=== PATIENT | male | born 1985 | race Caucasian/White ===

== ENCOUNTER → 2016-11-14 11:44 | Emergency (ER) | payer MEDICARE ==
[~2016-11-14 11:44] MED LIST: NS 0.9% 1000 ML* 1,000 ML IV ONE; ceFAZolin 1 GM in Dextrose (*) 1 GM/50 ML BAG IVPB ONE
--- NOTE | 2016-11-14 13:50 | RAD ---
INDICATION: RIGHT lower extremity cellulitis with worsening. Assess for DVT. COMPARISON: None. TECHNIQUE: Carlson scale, color Doppler, and spectral analysis of the deep veins of the RIGHT lower extremity. Vessel compression, phasicity, and augmentation assessed. REPORT: Obesity limits acoustic window. The RIGHT common femoral, great saphenous, profunda femoral, femoral, popliteal, peroneal, and posterior tibial veins are patent. Severe subcutaneous edema at the calf. No loculated fluid collection visualized. Patency of the contralateral common femoral vein documented. IMPRESSION: No evidence for RIGHT lower extremity deep venous thrombosis.
--- NOTE | 2016-11-14 16:16 | RAD ---
INDICATION: Cellulitis COMPARISON: None TECHNIQUE: AP, lateral, and oblique views were obtained. FINDINGS: There are no acute bony findings. There is mild disruption of the fat-muscle and face consistent with edematous change which can be seen with cellulitis. IMPRESSION: DEPENDENT EDEMA, OTHERWISE NEGATIVE.
[2016-11-14 16:52] LABS: Hematocrit 44 % (42-52); Hemoglobin 15.1 g/dl (14.0-18.0); Mean Corpuscular HGB Conc 34 g/dl (31-36); Mean Corpuscular Hemoglobin 31 pg (27-31); Mean Corpuscular Volume 91 fL (80-94); Mean Platelet Volume 8 um3 (7.4-10.4); Red Blood Count 4.85 10^6/ul (4.0-5.4); Red Cell Distribution Width 14 % (10.5-15); White Blood Count 10.2 10^3/ul (3.5-10.8)
[2016-11-14 17:10] LABS: Albumin 4.1 g/dL (3.2-5.2); BUN/Creatinine Ratio 9.4 (8-20); C Reactive Protein 13.84 mg/L (< 5.00); Calcium 9.4 mg/dL (8.6-10.3); EGFR African American 116.7 (>60); EGFR Non-African American 90.8 (>60); Total Bilirubin 0.9 mg/dL (0.2-1.0); Total Protein 8.1 g/dL (6.4-8.9)
--- NOTE | 2016-11-14 18:15 | ED ---
Daria, DoctorPatrizia scribed for Maryana Crum MD on 11/14/16 at 1523 . Lower Extremity - HPI Summary HPI Summary: 31 year old male arrived to [facility] c/o right leg swelling and erythema. He additionally reports pain (rated 8/10) in the front and backside of the right leg. Pt was hospitalized in [place] for cellulitis in the right leg 1 month ago, but noticed increased redness and swelling on the right side beginning three days ago. Pt denies any vomiting, fever, or high blood glucose levels. He was taking Clindamycin for his leg infection, but completed his dose within 1 week. He has PMHx of HTN, Chronic Back Pain, and a torn disc but no PMHx of DM. - History of Current Complaint Chief Complaint: EDExtremityLower Stated Complaint: RT LEG COMPLAINT Hx Obtained From: Patient Onset of Pain: Days Onset/Duration: Worse Since - increased redness for the past three days Severity Initially: Moderate Severity Currently: Moderate Pain Intensity: 8 Pain Scale Used: 0-10 Numeric Timing: Lasting Days Associated Signs And Symptoms: Positive: Swelling, Redness - Allergies/Home Medications Allergies/Adverse Reactions: Allergies Allergy/AdvReac Type Severity Reaction Status Date / Time No Known Allergies Allergy Verified 11/12/15 09:20 PMH/Surg Hx/FS Hx/Imm Hx Endocrine/Hematology History: Denies: Hx Diabetes Cardiovascular History: Reports: Hx Hypertension Respiratory History: Reports: Hx Sleep Apnea History: Reports: Hx Kidney Stones Musculoskeletal History: Reports: Hx Back Problems, Hx Scoliosis - Surgical History Surgery Procedure, Year, and Place: Right Knee Surgery 2004 in [place] Infectious Disease History: Denies: Traveled Outside the in Last 30 Days - Family History Known Family History: Positive: Diabetes - Social History Occupation: Employed Full-time Lives: With Family Alcohol Use: Rare Substance Use Type: Reports: None, Marijuana Smoking Status (MU): Former Smoker Type: Cigarettes Have You Smoked in the Last Year: No Review of Systems Negative: Fever Negative: Vomiting Positive: Edema - bilateral lower extremity edema Positive: Other - right lower extremity erythema All Other Systems Reviewed And Are Negative: Yes Physical Exam Triage Information Reviewed: Yes Vital Signs On Initial Exam: Initial Vitals Temp Pulse Resp BP Pulse Ox 98 F 90 18 154/96 100 11/14/16 11:52 11/14/16 11:52 11/14/16 11:52 11/14/16 11:52 11/14/16 11:52 Vital Signs Reviewed: Yes Appearance: Positive: Well-Appearing, No Pain Distress Skin: Positive: Warm, Dry, Other - bilateral lower extremity edema and lower right extremity erythema Eyes: Positive: EOMI, GRACE ENT: Positive: Pharynx normal, TMs normal Respiratory/Lung Sounds: Positive: Clear to Auscultation, Breath Sounds Present. Negative: Rales, Rhonchi, Wheezes Cardiovascular: Positive: RRR. Negative: Murmur, Rub Abdomen Description: Positive: Nontender, Soft. Negative: Distended, Guarding Bowel Sounds: Positive: Present Musculoskeletal: Positive: Strength/ROM Intact, Edema Left, Edema Right Neurological: Positive: Sensory/Motor Intact, Alert, Oriented to Person Place, Time, CN Intact II-III Psychiatric: Positive: Affect/Mood Appropriate Diagnostics - Vital Signs Vital Signs Temp Pulse Resp BP Pulse Ox 11/14/16 14:03 97.2 F 83 18 154/94 100 11/14/16 12:58 97.4 F 83 18 149/100 100 11/14/16 11:52 98 F 90 18 154/96 100 - Laboratory Lab Results: Lab Results 11/14/16 11/14/16 11/14/16 Range/Units 16:35 16:35 16:35 WBC 10.2 (3.5-10.8) 10^3/ul RBC 4.85 (4.0-5.4) 10^6/ul Hgb 15.1 (14.0-18.0) g/dl Hct 44 (42-52) % MCV 91 (80-94) fL MCH 31 (27-31) pg MCHC 34 (31-36) g/dl RDW 14 (10.5-15) % Plt Count 268 (150-450) 10^3/ul MPV 8 (7.4-10.4) um3 Neut % (Auto) 69.2 (38-83) % Lymph % (Auto) 20.6 L (25-47) % [place] % (Auto) 5.3 (1-9) % Eos % (Auto) 4.2 (0-6) % Baso % (Auto) 0.7 (0-2) % Absolute Neuts (auto) 7.0 (1.5-7.7) 10^3/ul Absolute Lymphs (auto) 2.1 (1.0-4.8) 10^3/ul Absolute Monos (auto) 0.5 (0-0.8) 10^3/ul Absolute Eos (auto) 0.4 (0-0.6) 10^3/ul Absolute Basos (auto) 0.1 (0-0.2) 10^3/ul Absolute Nucleated RBC 0.01 10^3/ul Nucleated RBC % 0.1 Sodium 136 (133-145) mmol/L Potassium 4.0 (3.5-5.0) mmol/L Chloride 101 (101-111) mmol/L Carbon Dioxide 30 (22-32) mmol/L Anion Gap 5 (2-11) mmol/L BUN 9 (6-24) mg/dL Creatinine 0.96 (0.67-1.17) mg/dL Est GFR ( Amer) 116.7 (>60) Est GFR (Non-Af Amer) 90.8 (>60) BUN/Creatinine Ratio 9.4 (8-20) Glucose 82 (70-100) mg/dL Lactic Acid 0.7 (0.5-2.0) mmol/L Calcium 9.4 (8.6-10.3) mg/dL Total Bilirubin 0.90 (0.2-1.0) mg/dL AST 16 (13-39) U/L ALT 18 (7-52) U/L Alkaline Phosphatase 87 (34-104) U/L C-Reactive Protein 13.84 H (< 5.00) mg/L Total Protein 8.1 (6.4-8.9) g/dL Albumin 4.1 (3.2-5.2) g/dL Globulin 4.0 (2-4) g/dL Albumin/Globulin Ratio 1.0 (1-3) Result Diagrams: 11/14/16 16:35 11/14/16 16:35 Lab Statement: Any lab studies that have been ordered have been reviewed, and results considered in the medical decision making process. - Radiology Lower Extremity X-Ray Radiology Interpretation Completed By: Radiologist - IMPRESSION: DEPENDENT EDEMA , OTHERWISE NEGATIVE. - Ultrasound No standard instances Ultrasound Interpretation Completed By: Radiologist - Venous Doppler IMPRESSION : No evidence for RIGHT lower extremity deep venous thrombosis. Re-Evaluation - Re-Evaluation First Eval Re-Evaluation Time: 17:40 Change: Unchanged - Discussed lab results and treatment plan to admit pt to hospital. Pt was agreeable. Lower Extremity Course/Dx - Course Course Of Treatment: 31 yo male with chronic cellulitis to right lower ext due to lymphedema, morbid obesity and fungal growth on feet. He has over the last month or so been on multiple abx and says that the combo of keflex and bactrim last worked best. He has a neg doppler, no signs of osteo lifting on xray and labs are normal. He requests a few days of lasix that he says really helps the situation and he knows to take it with potassium which he already has. The case has been discussed with Dr. Hunt who will see him as an outpt - Diagnoses Provider Diagnoses: Lymphedema, Morbid obesity, Cellulitis and abscess of leg - Physician Notifications Discussed Care of Patient With: 15:18 - Discussed care of pt with Dr. Pineda ( hospitalist), agrees to admit pt. 18:05 - Discussed care of pt with Dr. Hunt (surgeon) Discharge - Discharge Plan Condition: Stable Disposition: HOME Prescriptions: Cephalexin CAP* [Keflex CAP*] 500 mg PO QID #40 cap Furosemide TAB* [Lasix TAB*] 20 mg PO DAILY #4 tab Sulfamethox/Trimethoprim DS* [Bactrim DS 800/160 TAB*] 1 tab PO BID #20 tab Referrals: No Primary Care Phys,NOPCP [Primary Care Provider] - The documentation as recorded by the Doctor merlos Tahera accurately reflects the service I personally performed and the decisions made by me, Maryana Crum MD.
[2016-11-14 18:52] VITALS: BP 128/84
== END | disposition home or self-care (01) ==
LOC: ED 11:44
DX: I89.0 Lymphedema, not elsewhere classified (principal); E66.01 Morbid (severe) obesity due to excess calories; L03.119 Cellulitis of unspecified part of limb; R60.9 Edema, unspecified
CPT/HCPCS: 36415; 80053; 83605; 85025; 86140; 96365; 99283; J0690

== ENCOUNTER 2017-02-14 17:22 | Emergency (ER) | payer MEDICARE | END 2017-02-14 19:22 | disposition left against medical advice (07) | LOC: ED 17:22 | DX: M79.89 Other specified soft tissue disorders (principal); Z53.21 Procedure and treatment not carried out due to patient leaving prior to being seen by health care provider ==

== ENCOUNTER → 2018-06-08 15:55 | Emergency (ER) | payer MEDICARE ==
[~2018-06-08 15:55] MED LIST changes: +Albuterol/Ipratropium NEB.SOL* Albuterol 2.5 MG/Ipratropium 0.5 MG 3 ML INH ONE; +Famotidine TAB* 20 MG PO ONE; -NS 0.9% 1000 ML* 1,000 ML IV ONE; +Ondansetron ODT TAB* 4 MG PO ONE; -ceFAZolin 1 GM in Dextrose (*) 1 GM/50 ML BAG IVPB ONE
--- NOTE | 2018-06-08 18:43 | ED ---
Shortness of Breath - HPI Summary HPI Summary: Patient is a 33 y/o M w/ c/o SOB, chest tightness, N/V, abdominal pain, fatigue , fever and diaphoresis onsetting two days ago. He reports that he felt congested two days ago and currently feels congested "in my lungs". He report previous episodes of similar Sx and notes that he experiences such Sx yearly. PMHx of cellulitis. Patient states he smokes cigarettes but only monthly. On triage, pain is rated 9/10, nothing is noted to aggravate/alleviate Sx. Home medications and allergise are reviewed. - History of Current Complaint Chief Complaint: EDShortnessOfBreath Time Seen by Provider: 06/08/18 17:25 Hx Obtained From: Patient Onset/Duration: Lasting Days - onset two days ago, Still Present, Worse Since - patient reports he currently feels congested "in my lungs". Timing: Constant Current Severity: Severe - 9/10 on triage Aggrevating Factors: Nothing Alleviating Factors: Nothing Associated Signs & Symptoms: Fever, Diaphoresis - Allergy/Home Medications Allergies/Adverse Reactions: Allergies Allergy/AdvReac Type Severity Reaction Status Date / Time No Known Allergies Allergy Verified 06/08/18 15:58 PMH/Surg Hx/FS Hx/Imm Hx Endocrine/Hematology History: Denies: Hx Diabetes Cardiovascular History: Reports: Hx Hypertension Respiratory History: Reports: Hx Sleep Apnea Denies: Hx Asthma, Hx Chronic Obstructive Pulmonary Disease (COPD) History: Reports: Hx Kidney Stones Musculoskeletal History: Reports: Hx Back Problems, Hx Scoliosis - Surgical History Surgery Procedure, Year, and Place: Right Knee Surgery 2004 in [place] Infectious Disease History: No Infectious Disease History: Denies: Traveled Outside the [place] in Last 30 Days - Family History Known Family History: Positive: Diabetes - Social History Alcohol Use: None Substance Use Type: Reports: Marijuana Substance Use Comment - Amount & Last Used: medicinally for anxiety Smoking Status (MU): Light Every Day Tobacco Smoker Type: Cigarettes Have You Smoked in the Last Year: No Review of Systems Positive: Fever, Fatigue, Skin Diaphoresis Positive: Other - congested Positive: Other - chest tightness Positive: Shortness Of Breath, Other - congested "in my lungs" Positive: Abdominal Pain, Vomiting, Nausea All Other Systems Reviewed And Are Negative: Yes Physical Exam - Summary Physical Exam Summary: Appearance: Well appearing, no pain distress Skin: warm, dry, reflects adequate perfusion Head/face: normal Eyes: EOMI, GRACE ENT: mucous membranes moist, clear nasal discharge Neck: supple, non-tender Respiratory: diminished breath sounds, expiratory wheezes, no rales, no rhonci Cardiovascular: RRR, pulses symmetrical Abdomen: non-tender, soft Bowel Sounds: present Musculoskeletal: normal, strength/ROM intact Neuro: normal, sensory motor intact, A&Ox3 Triage Information Reviewed: Yes Vital Signs On Initial Exam: Initial Vitals Temp Pulse Resp BP Pulse Ox 100.6 F 109 34 155/87 93 06/08/18 15:57 06/08/18 15:57 06/08/18 15:57 06/08/18 15:57 06/08/18 15:57 Vital Signs Reviewed: Yes Diagnostics - Vital Signs Vital Signs Temp Pulse Resp BP Pulse Ox 06/08/18 18:00 119 11 96 06/08/18 17:59 16 118/84 06/08/18 17:48 105 11 139/83 99 06/08/18 17:47 118 18 99 06/08/18 17:29 101 21 130/94 94 06/08/18 17:28 100 15 94 06/08/18 15:57 100.6 F 109 34 155/87 93 - Laboratory Lab Statement: Any lab studies that have been ordered have been reviewed, and results considered in the medical decision making process. - Radiology CXR Radiology Interpretation Completed By: ED Physician Summary of Radiographic Findings: negative - EKG 1602 Cardiac Rate: NL - rate of 97 BPM EKG Rhythm: Sinus Rhythm ST Segment: Normal Summary of EKG Findings: 1st degree AV block, left axis deviation Re-Evaluation - Re-Evaluation First Eval Re-Evaluation Time: 18:45 Change: Improved Comment: Patient reports feeling better, bariatric surgery options were discussed. Course/Dx - Course Course Of Treatment: Morbidly obese individual with upper respiratory symptoms or cough and wheezing. Chest x-ray negative. Improved with breathing treatments and treatments for nausea. He's had some GI upset which was treated with Pepcid. No chest pain. Patient was doing significantly better following treatments will continue the same at home. We also discussed possible options for weight loss -- patient had indicated that he was interested in surgical weight-loss options. He is referred to surgery for this. - Diagnoses Differential Diagnosis/HQI/PQRI: Positive: Asthma, Bronchitis, COPD Exacerbation Provider Diagnoses: URI (upper respiratory infection), Gastritis, Morbidly obese Discharge - Sign-Out/Discharge Documenting (check all that apply): Patient Departure - discharge - Discharge Plan Condition: Improved Disposition: HOME Prescriptions: Albuterol HFA INHALER* [Ventolin HFA Inhaler*] 2 puff INH Q4H PRN #1 mdi PRN Reason: Sob/Wheezing Dexamethasone TAB* [Decadron TAB*] 8 mg PO DAILY #6 tab Famotidine TAB* [Pepcid 20 MG TAB*] 20 mg PO BID #30 tab guaiFENesin [Mucinex] 600 mg PO BID PRN #20 tab.er.12h PRN Reason: Congestion Ondansetron [Zofran Odt] 4 mg PO TID PRN #12 tab.rapdis PRN Reason: Nausea Patient Education Materials: Gastritis (ED), Upper Respiratory Infection (ED), Obesity (ED) Forms: *Work Release Referrals: Stephen Blevins MD [Medical Doctor] - Additional Instructions: Follow up with Beau on Monday. Referral to surgery has been provided given your interest in bariatric surgery options. Call for an appointment. Return with fever, difficulty breathing, worse, new symptoms or other concerns as discussed. Drink plenty of fluids. Gatorade G2 or propel water may be good options. - Billing Disposition and Condition Condition: IMPROVED Disposition: Home - Attestation Statements Document Initiated by Abelardo: Yes Documenting Scribe: Mike Olmedo Provider For Whom Abelardo is Documenting (Include Credential): Casey Brian MD Scribe Attestation: Mike Huff scribed for Casey Brian MD on 06/09/18 at 0736. Scribe Documentation Reviewed: Yes Provider Attestation: The documentation as recorded by the Mike merlos accurately reflects the service I personally performed and the decisions made by , Casey Brian MD
[2018-06-08 19:18] VITALS: BP 108/57
--- NOTE | 2018-06-09 08:26 | RAD ---
INDICATION: Cough and wheezing COMPARISON: None TECHNIQUE: PA and lateral views of the chest were obtained. FINDINGS: The heart and mediastinum are normal in size and contour. The lungs are grossly clear. There is no evidence of large pleural effusion. Visualized bones are normal for the patient's age. There is no radiographic evidence of free air beneath the diaphragm IMPRESSION: No radiographic evidence of acute cardiopulmonary disease. R0
== END | disposition home or self-care (01) ==
LOC: ED 15:55
DX: J06.9 Acute upper respiratory infection, unspecified (principal); K29.70 Gastritis, unspecified, without bleeding; E66.01 Morbid (severe) obesity due to excess calories; R50.9 Fever, unspecified; R10.9 Unspecified abdominal pain; R53.83 Other fatigue; R06.02 Shortness of breath; R11.2 Nausea with vomiting, unspecified; I10 Essential (primary) hypertension; F17.210 Nicotine dependence, cigarettes, uncomplicated
CPT/HCPCS: 71046; 93005; 99283; A9270-GY